=== PATIENT | male | born 1985 | race Hispanic/Latino ===

== ENCOUNTER 2017-09-29 08:33 | Outpatient (CLI) | payer OTHER | END 2017-09-29 08:34 | disposition home or self-care (01) | LOC: LAB 08:33 | PROVIDERS: ATTEND Family Medicine | DX: E78.1 Pure hyperglyceridemia (principal); E55.9 Vitamin D deficiency, unspecified ==

== ENCOUNTER 2020-02-24 23:39 | Emergency (ER) | payer OTHER ==
[2020-02-25] MEDS ORDERED: Adacel (T-DAP) 0.5 ML SYRINGE ONE (01:19)
--- NOTE | 2020-02-25 07:46 | RAD ---
THREE VIEWS LEFT SMALL DIGIT: DATE: 02/25/2020. PROVIDED CLINICAL HISTORY: Injury. FINDINGS: No evidence for a fracture or other acute osseous abnormality. If there is persistent clinical diane rn, conservative management and followup imaging are advised. IMPRESSION: As above. POS: ME[facility]
== END 2020-02-25 01:47 | disposition home or self-care (01) ==
LOC: ERS 23:39
DX: S91.115A Laceration without foreign body of left lesser toe(s) without damage to nail, initial encounter (principal); W26.9XXA Contact with unspecified sharp object(s), initial encounter
CPT/HCPCS: 12001; 90471; 90715

== ENCOUNTER 2021-02-14 15:38 | Outpatient (CLI) | payer OTHER | END 2021-02-14 15:39 | disposition home or self-care (01) | LOC: BICRAD 15:38 | PROVIDERS: ATTEND Family Medicine | DX: M25.521 Pain in right elbow (principal) ==